=== PATIENT | female | born 1985 | race Caucasian/White ===

== ENCOUNTER 2016-09-17 18:20 | Emergency (ER) | payer OTHER ==
[2016-09-17 18:35] VITALS: RESP 18
[2016-09-17 19:50] LABS: COLOR PALE YELLOW; LEUKOCYTE ESTERASE,URINE NEGATIVE (NEGATIVE); NITRITE,URINE NEGATIVE (NEGATIVE)
[2016-09-17] MEDS ORDERED: ALBUTEROL 3 ML DEYVIAL IH ONE (20:38)
--- NOTE | 2016-09-17 20:41 | EDPHY ---
H & P Stated Complaint: sob/cough/dx viral illness/30 wks preg tello best Time Seen by Provider: 09/17/16 20:33 HPI/ROS: CHIEF COMPLAINT: Cough, congestion, worsening dyspnea HISTORY OF PRESENT ILLNESS: The patient presents to the ED with cough, congestion and worsening dyspnea. The patient reported her symptoms began earlier in the week. She reports a fever to 101. She was seen by her primary physician who diagnosed her with a likely viral syndrome. The patient has been taking [id number] medications with minimal improvement. The patient's son is currently sick with similar respiratory symptoms and is on antibiotics for pneumonia. The patient was not tested for influenza. The patient did have some abdominal cramping. She complains of a harsh and productive cough. REVIEW OF SYSTEMS: A comprehensive 10 point review of systems is otherwise negative aside from elements mentioned in the history of present illness. Source: Patient Exam Limitations: No limitations - Personal History LMP (Females 10-55): Current Tetanus/Diphtheria Vaccine: Yes Current Tetanus Diphtheria and Acellular Pertussis (TDAP): Unsure - Medical/Surgical History Hx Asthma: Yes Hx Chronic Respiratory Disease: No Hx Diabetes: No Hx Cardiac Disease: No Hx Renal Disease: No Hx Cirrhosis: No Hx Alcoholism: No Hx HIV/AIDS: No Hx Splenectomy or Spleen Trauma: No Other PMH: abdominaplasty/ l shoulder surg - Social History Smoking Status: Never smoked - Physical Exam Exam: General Appearance: Alert, no distress Eyes: Pupils equal and round no pallor or injection ENT, Mouth: Mucous membranes moist Respiratory: Rhonchorous breath sounds, expiratory wheezing Cardiovascular: Regular rate and rhythm Gastrointestinal: Abdomen is soft and nontender, no masses, bowel sounds normal Neurological: A&O, normal motor function, normal sensory exam, normal cranial nerves Skin: Warm and dry, no rashes Musculoskeletal: Neck is supple nontender Extremities: symmetrical, full range of motion Constitutional: Initial Vital Signs Temperature (C) 36.5 C 09/17/16 18:32 Heart Rate 94 09/17/16 18:32 Respiratory Rate 18 09/17/16 18:32 Blood Pressure 113/80 09/17/16 18:32 O2 Sat (%) 98 09/17/16 18:32 O2 Delivery Mode Room Air Allergies/Adverse Reactions: No Known Allergies Allergy (Verified 09/17/16 18:32) Home Medications: Medication Instructions Recorded Cetirizine [ZyRTEC] 10 mg PO DAILY 10/23/12 Herbals/Supplements -Info Only 1 each PO AD 10/23/12 Iron/Docusate Sodium 1 each PO BID 10/23/12 [Ovi-Sequels] Magnesium 250 mg PO DAILY 10/23/12 Vit27&Calcium/Iron/FA 1 each PO DAILY 10/23/12 [ Rx 1 Tablet (RX)] Ibuprofen [Advil Liqui-Gels] 2 cap PO PRN 10/01/15 Pseudoephedrine HCl 2 tab PO PRN 10/01/15 Albuterol QID 09/17/16 Albuterol [Ventolin Hfa Inhaler] 2 puffs IH QID PRN #1 mdi 09/17/16 Oseltamivir Phosphate [Tamiflu] 75 mg PO BID #10 cap 09/17/16 Qvar 40 (*) 09/17/16 Medical Decision Making - Diagnostics Imaging: Chest x-ray PA lateral: Images reviewed by myself, changes consistent with bronchitis or noted, no focal infiltrate present ED Course/Re-evaluation: The patient was initially sent to Labor and delivery given the fact she was 30 weeks with complaints of abdominal cramping and possible [place] contractions. The patient was observed on Labor and delivery and had a negative evaluation. She was sent to the ED for subsequent evaluation of her respiratory illness. The patient is noted to have rhonchorous breath sounds on exam. She presents to the ED with an upper respiratory infection. The patient did receive a DuoNeb. The patient's rapid flu test was negative. The patient's chest x-ray demonstrates only changes consistent with bronchitis. Patient was re-evaluated by myself at 9:45 p.m.. She is feeling better after DuoNeb. At this point time she will be discharged home with a albuterol inhaler. Given the fact the patient is she will be started on Tamiflu despite her negative rapid flu test. Differential Diagnosis: Differential diagnosis considered includes asthma, bronchitis, pneumonia, influenza - Data Points Laboratory Results: 09/17/16 09/17/16 20:40 19:42 Urine Color PALE YELLOW Urine Appearance CLEAR Urine pH 7.0 (5.0-7.5) Ur Specific [place] 1.004 (1.002-1.030) Urine Protein NEGATIVE (NEGATIVE) Urine Ketones NEGATIVE (NEGATIVE) Urine Blood NEGATIVE (NEGATIVE) Urine Nitrate NEGATIVE (NEGATIVE) Urine Bilirubin NEGATIVE (NEGATIVE) Urine Urobilinogen NEGATIVE EU (0.2-1.0) Ur Leukocyte Esterase NEGATIVE (NEGATIVE) Urine Glucose NEGATIVE (NEGATIVE) Influenza Typ A,B (DFA) NEGATIVE FOR FLU (NEGATIVE) Medications Given: Discontinued Medications Albuterol (Proventil Neb) 3 ml IH EDNOW ONE Stop: 09/17/16 20:39 Last Admin: 09/17/16 20:54 Dose: 3 ml Departure - Departure Disposition: Home, Routine, Self-Care Clinical Impression: Acute bronchitis, Acute exacerbation of congestive heart failure Condition: Good Instructions: Acute Bronchitis (ED) Additional Instructions: 1. Please use inhaler up to every 2 hours as needed. 2. Please return to the ED for markedly worsening symptoms or other concerns. 3. Please take Tamiflu as directed for possible influenza. 4. Please follow up with your imaging account manager as scheduled Referrals: Chris Cole MD [Primary Care Provider] - Prescriptions: Oseltamivir Phosphate [Tamiflu] 75 mg PO BID #10 cap Albuterol [Ventolin Hfa Inhaler] 2 puffs IH QID PRN #1 mdi PRN Reason: for shortness of breath
--- NOTE | 2016-09-17 21:21 | DX ---
PA and Lateral Chest History: Cough. Comparison: None available. Findings: There is mild peribronchial thickening without focal consolidation. There is no pneumothora x or pleural effusion. The heart and pulmonary vasculature are normal. Mild anterior height reduction at T9 and T10 may be congenital or posttraumatic (age-indeterminate). Impression: Mild peribronchial thickening suggesting airways disease/bronchitis.
[2016-09-17 21:50] VITALS: BP 119/74; PULSE 97; TEMP 98.4; O2SAT 95
== END 2016-09-17 21:49 | disposition home or self-care (01) ==
LOC: FLD 18:57 → UNDOADMOB 18:57 → FLD 20:54
DX: O99.513 Diseases of the respiratory system complicating pregnancy, third trimester (principal); J20.9 Acute bronchitis, unspecified; O99.413 Diseases of the circulatory system complicating pregnancy, third trimester; I50.9 Heart failure, unspecified; J45.909 Unspecified asthma, uncomplicated; Z3A.30 30 weeks gestation of pregnancy

== ENCOUNTER 2016-10-31 03:44 | Observation (INO) | payer OTHER | END 2016-10-31 05:07 | disposition home or self-care (01) | LOC: FLD 03:44 | PROVIDERS: ADMIT Obstetrics & Gynecology; ATTEND Obstetrics & Gynecology | DX: O42.90 Premature rupture of membranes, unspecified as to length of time between rupture and onset of labor, unspecified weeks of gestation (principal); Z3A.00 Weeks of gestation of pregnancy not specified | CPT/HCPCS: 59025; G0378 ==

== ENCOUNTER 2016-11-16 18:15 | Observation (INO) | payer OTHER ==
--- NOTE | 2016-11-16 18:34 | OBPROG ---
OBG Progress Note Assessment/Plan: Assessment:cat 1 fhr denies regular contraction. Cramping for the last hour. no bleeding feeling decreased movement x5-6 hours today denies leaking fluid Plan:nst, cervical exam 11/16/16 18:34 Subjective: I have not felt baby move routinely for several hours today and movement has been no where near what I feel comfortable with. Denies leaking bleeding. Feeling some irregular contractions nothing regular. scheduled csection. Hoping to go into labor. - Physical Exam General Appearance: WD/WN, alert, no apparent distress Respiratory: chest non-tender, lungs clear, normal breath sounds Cardiac/Chest: regular rate, rhythm Abdomen: normal bowel sounds Membranes: Intact Extremities: normal range of motion, Richard's sign (negative bilaterally) DTR- Lower Extremities: Knee (R): 1+, Knee (L): 1+ Skin: normal color, warm/dry Neuro/Psych: no motor/sensory deficits, alert, normal mood/affect, oriented x 3 ICD10 Worksheet Patient Problems: Problems Problem Status Onset Decreased movement affecting management of mother, antepartum Acute - ICD10 Problem Qualifiers (1) Decreased movement affecting management of mother, antepartum
--- NOTE | 2016-11-16 19:37 | GHP ---
[f rep st] HISTORY AND PHYSICAL DATE OF ADMISSION: 11/16/2016 HISTORY OF PRESENT ILLNESS: The patient is a 31-year-old, 3, para 1, A1 with a gestational age of 38 weeks who comes in with complaint of decreased movement and irregular contractions times one hour. On admission, patient denies leaking, bleeding. States feeling irregular cramping. States movement is diminished since early a.m. and what movement she is feeling is different than what she has experienced previously. PAST MEDICAL HISTORY: Patient has a history of asthma. PAST SURGICAL HISTORY: D and C in September of 2015, a previous with her previous , was completed for 0 progress, 7 pounds 3 ounces at 37 weeks, abdominoplasty in 2008, shoulder surgery on her left in 2010. GYNECOLOGICAL HISTORY: denies abnormal Pap, previous use of OCPs and IUD Mirena. FAMILY HISTORY: Mom had a previous D and C, previous abnormal Pap. Sister had a previous abnormal Pap. ALLERGIES: NKDA. MEDICATIONS: vitamins, Zyrtec, Zantac, simethicone, Colace, uses an albuterol inhaler (last time utilized was September of 2015). PHYSICAL EXAMINATION: GENERAL: Patient is awake, alert, oriented x3. LUNGS: Clear bilaterally. ABDOMEN: Bowel sounds are positive in all 4 quadrants. The abdomen is soft on palpation. Estimated weight is 8 pounds. Patient desires a if possible. The patient has a scheduled in 1 week. Exam today was 1, soft, 50% effaced, ballotable, cephalic. Contractions are irregular with no set pattern. PLAN OF CARE: 1. Reactive nonstress test. 2. Labor precautions. 3. Follow up plan of care. 4. Keep next appointment in the clinic. 5. Reassurance. Positive movement. Category I tracing. DISPOSITION: Discharged to home with instructions. /[id number]/MODL MTDD
== END 2016-11-16 19:28 | disposition home or self-care (01) ==
LOC: FLD 18:15
PROVIDERS: ADMIT Advanced Practice Midwife; ATTEND Advanced Practice Midwife
DX: O36.8130 Decreased fetal movements, third trimester, not applicable or unspecified (principal); Z3A.38 38 weeks gestation of pregnancy

== ENCOUNTER 2016-11-29 22:38 | Inpatient (IN) | payer OTHER ==
[2016-11-29] MEDS ORDERED: TERBUTALINE SULFATE 1 MG/ML VIAL IV PRN (22:54)
[2016-11-29] MEDS ORDERED: OXYTOCIN/RINGERS LACTATE 1,000 ML IV PRN (22:54)
[2016-11-29] MEDS ORDERED: AMPICILLIN SODIUM 2 GM in NS 100 ML IV ONE (22:54)
[2016-11-29] MEDS ORDERED: OLIVE OIL 118 ML BTL MISC PRN (22:54)
[2016-11-29] MEDS ORDERED: LIDOCAINE 1% 30 ML SDV SC PRN (22:54)
[2016-11-29] MEDS ORDERED: LR 1,000 ML IV PRN (22:54)
[2016-11-29] MEDS ORDERED: EPSOM SALT 454 GM TP PRN (22:54)
[2016-11-29 23:24] LABS: % IMMATURE GRANULYOCYTES 0.4 % (0.0-1.1); ABSOLUTE IMMATURE GRANULOCYTES 0.06 10^3/uL (0.00-0.10); ADD DIFF? NO; ADD MORPH? NO; ADD SCAN? NO; ATYPICAL LYMPHOCYTE FLAG 0 (0-99); FRAGMENT RBC FLAG 0 (0-99); HEMATOCRIT 39.3 % (38.0-47.0); HEMOGLOBIN 13.3 g/dL (12.6-16.3); LEFT SHIFT FLG 0 (0-99); LIPEMIA HEMOLYSIS FLAG 90 (0-99); MEAN CELL HEMOGLOBIN 29.7 pg (27.9-34.1); MEAN CELL HEMOGLOBIN CONCENTR. 33.8 g/dL (32.4-36.7); MEAN CELL VOLUME 87.7 fL (81.5-99.8); MEAN PLATELET VOLUME 11.3 fL (8.7-11.7); PLATELET CLUMPS FLAG 0 (0-99); PLATELET COUNT 233 10^3/uL (150-400); RED BLOOD CELL COUNT 4.48 10^6/uL (4.18-5.33); RED CELL DISTRIBUTION WIDTH 13.2 % (11.5-15.2)
[2016-11-30 00:13] LABS: ALANINE AMINOTRANSFERASE 30 IU/L (9-52); ASPARTATE AMINOTRANSFERASE 23 IU/L (14-46); BILIRUBIN,TOTAL 0.6 mg/dL (0.1-1.4); BILIRUBIN-CONJUGATED 0.3 mg/dL (0.0-0.5); BILIRUBIN-UNCONJUGATED 0.3 mg/dL (0.0-1.1); CREATININE 0.5 mg/dL (0.6-1.0); GLOMERULAR FILTRATION RATE > 60; LACTATE DEHYDROGENASE 474 IU/L (313-618); URIC ACID 4.4 mg/dL (2.5-6.8)
[2016-11-30] MEDS: AMPICILLIN SODIUM 1 GM in NS 100 ML IV SCH ×3 (03:24→10:59)
[2016-11-30] MEDS ORDERED: AMMONIA AROMATIC 1 EACH AMP IH ONE (04:30)
[2016-11-30] MEDS ORDERED: OLIVE OIL 118 ML BTL ONE (04:30)
[2016-11-30] MEDS ORDERED: LIDOCAINE 1% 30 ML SDV ONE (04:30)
[2016-11-30] MEDS ORDERED: TERBUTALINE SULFATE 1 MG/ML VIAL ONE (04:31)
[2016-11-30] MEDS ORDERED: OXYTOCIN 10 UNIT/ML VIAL ONE (04:31)
[2016-11-30] MEDS ORDERED: MISOPROSTOL 200 MCG TAB ONE (04:31)
--- NOTE | 2016-11-30 08:24 | OBPROG ---
OBG Progress Note Assessment/Plan: Assessment: irregular contractions no pain clear to pink tinged amniotic fluid cat fhr clear fluid since 2100 11/29/2016 discussed r/b/a will wait for Dr. Bermudez to come to sign consents for section anesthesia aware of poc on way to discuss anesthesia Plan: Patient ok with proceeding with a section 11/30/16 08:19 Subjective: Denies contractions. Denies feeling pain. Continuing to leak clear to pink tinged vaginal fluid. Objective: 11/29/16 23:10 11/29/16 23:10 Patient ABO/Rh A POSITIVE 11/29/16 23:10 Uric Acid 4.4 mg/dL (2.5-6.8) 11/29/16 23:10 Total Bilirubin 0.6 mg/dL (0.1-1.4) 11/29/16 23:10 Conjugated Bilirubin 0.3 mg/dL (0.0-0.5) 11/29/16 23:10 Unconjugated Bilirubin 0.3 mg/dL (0.0-1.1) 11/29/16 23:10 AST 23 IU/L (14-46) 11/29/16 23:10 ALT 30 IU/L (9-52) 11/29/16 23:10 Lactate Dehydrogenase 474 IU/L (313-618) 11/29/16 23:10 - Physical Exam General Appearance: WD/WN, alert, no apparent distress Respiratory: chest non-tender, lungs clear, normal breath sounds Cardiac/Chest: regular rate, rhythm Abdomen: normal bowel sounds Membranes: SROM Amniotic Fluid Color: blood tinged Extremities: normal range of motion, Richard's sign (negative bilaterally) DTR- Lower Extremities: Knee (R): 1+, Knee (L): 1+ Skin: normal color, warm/dry Neuro/Psych: no motor/sensory deficits, alert, normal mood/affect, oriented x 3 ICD10 Worksheet Patient Problems: Problems Problem Status Onset Decreased movement affecting management of mother, antepartum Acute
--- NOTE | 2016-11-30 08:47 | GHP ---
[f rep st] HISTORY AND PHYSICAL DATE OF ADMISSION: 11/29/2016 SUBJECTIVE: The patient is a 3, P1, A1, at 40 weeks gestation, who comes in on 11/29/2016 at 2100 with complaints of rupture of membranes; mostly clear, some pinkish blood-tinged after spontaneous rupture of membranes. Feeling positive movement. Continuing to leak clear fluid on 11/30/2016. Irregular nonpainful contractions throughout the night. The patient ate at the last time at 2100 on 11/29/2016. Clear fluids since. GBS positive has received 3 doses antibiotics. MEDICAL HISTORY: Patient has a history of asthma. PAST SURGICAL HISTORY: Previous for failure to progress. Left shoulder surgery in 2010. Abdominoplasty in 2008. D and C in 09/2015. Denies any difficulties with any of these procedures. FAMILY HISTORY: Noncontributory. PREVIOUS HISTORY: Previous , Preeclampsia, as well as a C- section for failure to progress. GYNECOLOGICAL HISTORY: Noncontributory. The patient has received 3 doses of antibiotics. LABORATORY DATA: A+ Rubella immune. All other labs, we are waiting on the to be sent from the office. PHYSICAL EXAMINATION: GENERAL: Patient is awake, alert, oriented x3. LUNGS: Clear bilaterally. ABDOMEN: Bowel sounds are positive in all 4 quadrants. EXTREMITIES: DTRs are 1+ bilaterally. No clonus. Homans' sign is negative bilaterally. No edema in lower extremities. PLAN OF CARE: 1. GBS positive x 3 doses antibiotics 2. Spontaneous rupture of membranes on 11/29/2016 at 2100. 3. No spontaneous labor. 4. Proceed to section with the patient stating that is her desired plan of care. /[id number]/MODL MTDD
[2016-11-30] MEDS ORDERED: ceFAZolin 2 GM/DEXTROSE 100 ML IV ONE (09:02)
[2016-11-30] MEDS ORDERED: CITRIC ACID/SODIUM CITRATE 30 ML UDCUP PO ONE (09:02)
[2016-11-30] MEDS ORDERED: fentaNYL 100 MCG/2 ML INJ ONE (11:04)
[2016-11-30] MEDS ORDERED: morphINE PF 5 MG/10 ML INJ ONE (11:04)
[2016-11-30] MEDS ORDERED: PHENYLEPHRINE HCL 100 MCG/ML SYR ONE ×3 (11:22→11:52)
[2016-11-30] MEDS ORDERED: METOCLOPRAMIDE 10 MG/2 ML VIAL ONE ×2 (11:28→11:31)
[2016-11-30] MEDS ORDERED: DEXAMETHASONE 4 MG/ML VIAL ONE ×3 (11:28→11:50)
[2016-11-30] MEDS ORDERED: OXYTOCIN 100 UNITS/10 ML VIAL ONE (11:50)
[2016-11-30] MEDS ORDERED: SCOPOLAMINE HYDROBROMIDE 1.5 MG PATCH TD ONE (11:57)
[2016-11-30] MEDS ORDERED: MAGNESIUM HYDROXIDE 30 ML UDCUP PO PRN (12:26)
[2016-11-30] MEDS ORDERED: DOCUSATE SODIUM 100 MG CAP PO PRN (12:26)
[2016-11-30] MEDS ORDERED: LACTULOSE 20 GM/30 ML UDCUP PO PRN (12:26)
[2016-11-30] MEDS ORDERED: POLYETHYLENE GLYCOL 3350 17 GM PKT PO PRN (12:26)
[2016-11-30] MEDS ORDERED: BISACODYL 10 MG SUPP PR PRN (12:26)
[2016-11-30] MEDS ORDERED: ACETAMINOPHEN 325 MG TAB PO PRN (12:26)
--- NOTE | 2016-11-30 12:29 | OBPROC ---
- Delivery Pre-op Diagnoses: IUP at 40 weeks, SROm, hx prior section Post-op Diagnoses: same plus occiput posterior Procedure: Repeat, Low Transverse Surgeon: Clau Bermudez Biology Instructor: Estephanie Camarillo Anesthesia: Spinal EBL: 800 - [place] Info A Delivery Date: 11/30/16 Delivery Time: 11:47 Sex of Infant: Female Score (1 Min): 8 Score (5 Min): 9
--- NOTE | 2016-11-30 13:02 | GOP ---
[f rep st] OPERATIVE REPORT DATE OF OPERATION: 11/30/2016 SURGEON: Clau Bermudez DO COIN TELLER: Roxann Camarillo. ANESTHESIA: Epidural with Duramorph. ANESTHESIOLOGIST: Vinny Sweet MD PREOPERATIVE DIAGNOSIS: 1. Intrauterine at 40 weeks gestation. 2. History of previous low transverse section. 3. Spontaneous rupture of membranes of 12 hours, did not progress in active labor. Declines augmen tation. POSTOPERATIVE DIAGNOSIS: 1. Intrauterine at 40 weeks gestation. 2. History of previous low transverse section. 3. Spontaneous rupture of membranes of 12 hours, did not progress in active labor. Declines augmen tation. 4. Occiput posterior. PROCEDURE PERFORMED: Repeat low transverse section. FINDINGS: 1. Viable female infant in the occiput posterior presentation delivered at 11:47 a.m. Apgars were 8 and 9. 2. Intact placenta with 3-vessel cord. 1. Normal ovaries, uterus, and tubes. ESTIMATED BLOOD LOSS: 800 cc. INDICATIONS: Patient is a 31-year-old 3, para 2-0-1-2, who is 40 weeks gestation. She is s cheduled for a repeat section tomorrow morning, but had a spontaneous rupture of membranes last night. She had initially hoped to do a vaginal after section. She spontaneousl y ruptured last night and did not progress into active labor. We had a discussion of options of aug mentation versus proceeding with a repeat section. Patient declines augmentation and wishe s to proceed with a repeat low-transverse section. The patient's family status is complete , but she declines tubal ligation. Risks and benefits of the procedure have been reviewed with the patient. The patient has been properly consented. DESCRIPTION OF PROCEDURE: Patient taken to the operating room with intravenous fluids in place. Jason dunham was given 2 g of Ancef intravenously and placed on the operating room table, where spinal anesthes ia was obtained. She was then repositioned into the dorsal supine position with a leftward tilt. A Barragan catheter was then placed. Venodynes were placed on her lower extremities. She was then prep ped and draped in the normal sterile fashion. Anesthesia was assessed and found to be adequate. A Pfannenstiel skin incision was then made 2 fingerbreadths above the pubic symphysis. The incision was then carried through to the underlying layer of fascia with the Bovie. The fascia was then lucas ked in the midline and the fascial incision was extended laterally. The superior aspect of the fasc ial incision was grasped with the Kelsie's, tented up, and the underlying rectus muscle dissected of f bluntly and with the Bovie. Attention was then turned to the inferior aspect of the fascial incis ion, which, in a similar fashion, was grasped with Kochers, tented up, and the underlying rectus mus jocelyn dissected off bluntly with the Bovie. The rectus muscle was then in the midline. The peritoneum was then identified, tented up, and entered sharply with the Metzenbaum scissors. The i ncision was extended superiorly and inferiorly with excellent visualization of the bladder. The bj dder blade was then inserted. The vesicouterine peritoneum was then identified, tented up, and ente red sharply with the Metzenbaum scissors. The incision was then extended laterally and a bladder fl ap was created digitally. The bladder blade was then reinserted. The uterus was then incised in a low transverse fashion with the scalpel. The uterine incision was extended laterally. The infant's head was delivered through the incision. It was noted to be in oc ciput posterior presentation. The viable female was then delivered without difficulty. Stefani yed cord clamping was performed for 1 minute. The cord was then clamped x2 and cut. Cord blood was obtained. The infant was handed off to awaiting nurse practitioner. Intact placenta with 3-vessel cord delivered without difficulty. The uterus was then exteriorized a nd cleared of all clots and debris and wrapped in a moist laparotomy sponge. The hysterotomy was cl osed with 0 Vicryl in a running, locked fashion. A second 0 Vicryl stitch was used to imbricate the uterine incision. The ovaries, uterus, and tubes were unremarkable. The abdomen was cleared of al l clots. The uterus was then returned to the patient's abdomen. The gutters were cleared of all cl ots and debris. The hysterotomy remained hemostatic. Peritoneum was reapproximated with 3-0 Vicryl in a running fashion. Rectus muscle was reapproximate d with 2-0 Vicryl in a running fashion. Fascia was closed with 0 Vicryl in a running fashion. Subc utaneous tissue was found to be hemostatic. It was reapproximated with 3-0 Vicryl in a running fash ion. The skin was then closed with nitin. Sponge, lap, needle counts were correct x2. Patient w as transported to the recovery room in stable condition. /[id number]/MODL
[2016-11-30] MEDS ORDERED: PHENYLEPHRINE HCL 100 MCG/ML SYR IVP PRN (13:10)
[2016-11-30] MEDS ORDERED: NALOXONE HCL 0.4 MG/ML INJ IVP PRN (13:10)
[2016-11-30] MEDS ORDERED: MEPERIDINE 25 MG/ML SYR IVP ONE (13:24)
--- NOTE | 2016-11-30 13:38 | PREANESOB ---
Obstetric Pre-Anesthesia Info - General Info Proposed Procedure: Repeat C Section. : 3 Para: 1 WBD: 40 - Info Status: Full Term Monitors: External FHR Baseline (bpm): 125 FHR Pattern: Reassuring - Labor Status Section History: Repeat Indications for Current Section: Elective/Repeat Labor Epidural: No Anesthesia ROS: Mild asthma. Previous epidural for labor and C Section. Allergies/Adverse Reactions: Allergy/AdvReac Type Severity Reaction Status Date / Time No Known Allergies Allergy Verified 09/17/16 18:32 Home Medications: Medication Instructions Recorded Cetirizine [ZyRTEC] 10 mg PO DAILY 10/23/12 Magnesium 250 mg PO DAILY 10/23/12 Vit27&Calcium/Iron/FA 1 each PO DAILY 10/23/12 [ Rx 1 Tablet (RX)] Albuterol [Ventolin Hfa Inhaler] 2 puffs IH QID PRN #1 mdi 09/17/16 Aspirin [Children's Aspirin] DAILY 10/31/16 Docusate Sodium [Colace 100 MG (*)] PRN PRN 10/31/16 Ranitidine HCl [Zantac] PO DAILY 10/31/16 Visit Medications: Generic Name Dose Route Start Last Admin Trade Name Freq PRN Reason Stop Dose Admin Acetaminophen 325 - 650 mg 11/30/16 12:26 Tylenol PO 05/29/17 12:25 Q3HRS PRN Pain, Mild Hydrocodone Bitart/Acetaminophen 1 - 2 tab 11/30/16 12:26 [place] 5/325 PO 12/10/16 12:25 Q4HRS PRN Pain, Moderate Bisacodyl 10 mg 11/30/16 12:26 Dulcolax Rectal LA 05/29/17 12:25 DAILY PRN Constipation Protocol Diphenhydramine HCl 25 - 50 mg 11/30/16 13:10 Benadryl Injection IVP 05/29/17 13:09 Q6HRS PRN Itching Docusate Sodium 100 mg 11/30/16 12:26 Colace PO 05/29/17 12:25 BID PRN Constipation Lactated Ringer's 1,000 mls @ 0 mls/hr 11/29/16 22:54 11/29/16 23:19 Lr IV 05/28/17 22:53 1,000 mls PRN PRN Administration SEE PROTOCOL CONDITIONS Protocol Per Protocol Oxytocin/Lactated Ringer's 1,000 mls @ 150 mls/hr 11/29/16 22:54 Pitocin 20 Units/Lr (Premix) IV PRN PRN Post- bleeding Ibuprofen 600 mg 11/29/16 22:54 Motrin PO 05/28/17 22:53 Q6HRS PRN post , inflammation Ketorolac Tromethamine 30 mg 11/30/16 18:00 Toradol IVP 12/01/16 12:01 Q6HRS JEANCARLOS Lactulose 20 gm 11/30/16 12:26 Cephulac PO 05/29/17 12:25 TID PRN Constipation Protocol Lidocaine HCl 30 ml 11/29/16 22:54 Lidocaine Hcl 1% SC 05/28/17 22:53 ONCE PRN Episiotomy Magnesium Hydroxide 30 ml 11/30/16 12:26 Milk Of Magnesia PO 05/29/17 12:25 DAILY PRN Constipation Protocol Magnesium Sulfate 454 gm 11/29/16 22:54 Epsom Salt TP 05/28/17 22:53 PRN PRN perineal discomfort Naloxone HCl 0.4 mg 11/30/16 13:10 Narcan IVP 12/01/16 13:12 PRN PRN respiratory depression [place]iga Oil 118 ml 11/29/16 22:54 Sweet Oil MISC 05/28/17 22:53 ONCE PRN preneal massage Phenylephrine HCl 100 mcg 11/30/16 13:10 Lucas-Synephrine IVP 11/30/16 14:11 Q1M PRN Hypotension Polyethylene Glycol 17 gm 11/30/16 12:26 Miralax PO 05/29/17 12:25 DAILY PRN Constipation, patient prefers Protocol Senna/Docusate Sodium 1 - 2 tab 11/30/16 21:00 Senokot-S PO 05/29/17 20:59 BID JEANCARLOS Protocol Simethicone 80 mg 11/30/16 12:26 Mylicon PO 05/29/17 12:25 .TIDMEALS AND HS PRN Gas Terbutaline Sulfate 0.25 mg 11/29/16 22:54 Brethine IV 05/28/17 22:53 ONCE PRN Tachysystole Discontinued Medications Generic Name Dose Route Start Last Admin Trade Name Freq PRN Reason Stop Dose Admin Ammonia (Aromatic Spirit) Confirm 11/30/16 04:30 Ammonia Aromatic Administered 11/30/16 04:31 Dose 1 each IH .STK-MED ONE Citric Acid/Sodium Citrate 30 ml 11/30/16 09:02 11/30/16 10:58 Bicitra PO 11/30/16 09:03 30 ml ONCALL ONE Administration Dexamethasone Confirm 11/30/16 11:28 Decadron Injection Administered 11/30/16 11:29 Dose 4 mg .ROUTE .STK-MED ONE Dexamethasone Confirm 11/30/16 11:28 Decadron Injection Administered 11/30/16 11:29 Dose 4 mg .ROUTE .STK-MED ONE Dexamethasone Confirm 11/30/16 11:50 Decadron Injection Administered 11/30/16 11:51 Dose 4 mg .ROUTE .STK-MED ONE Ephedrine Sulfate Confirm 11/30/16 04:30 Ephedrine Sulfate Administered 11/30/16 04:31 Dose 50 mg .ROUTE .STK-MED ONE Fentanyl Confirm 11/30/16 11:04 Sublimaze Administered 11/30/16 11:05 Dose 100 mcg .ROUTE .STK-MED ONE Ampicillin Sodium 2 gm/ Sodium 110 mls @ 220 mls/hr 11/29/16 22:54 11/29/16 23:19 Chloride IV 11/29/16 23:23 110 mls ONCE ONE Administration Protocol Ampicillin Sodium 1 gm/ Sodium 100 mls @ 200 mls/hr 11/30/16 02:58 11/30/16 10:59 Chloride IV 12/30/16 02:57 Not Given Q4H JEANCARLOS Protocol Cefazolin Sodium/Dextrose 100 mls @ 200 mls/hr 11/30/16 09:02 11/30/16 10:59 Ancef 2 Gm (Premix) IV 11/30/16 09:31 100 mls ONCALL ONE Administration Protocol Lidocaine HCl Confirm 11/30/16 04:30 Lidocaine Hcl 1% Administered 11/30/16 04:31 Dose 30 ml .ROUTE .STK-MED ONE Meperidine HCl 25 mg 11/30/16 13:24 Demerol 25 Mg/Ml Syringe IVP 11/30/16 13:25 ONCE ONE Metoclopramide HCl Confirm 11/30/16 11:28 Reglan Injection Administered 11/30/16 11:29 Dose 10 mg .ROUTE .STK-MED ONE Metoclopramide HCl Confirm 11/30/16 11:31 Reglan Injection Administered 11/30/16 11:32 Dose 10 mg .ROUTE .STK-MED ONE Misoprostol Confirm 11/30/16 04:31 Cytotec Administered 11/30/16 04:32 Dose 1,000 mcg .ROUTE .STK-MED ONE Morphine Sulfate Confirm 11/30/16 11:04 Morphine Pf 5 Mg/10 Ml Administered 11/30/16 11:05 Dose 5 mg .ROUTE .STK-MED ONE Riga Oil Confirm 11/30/16 04:30 Sweet Oil Administered 11/30/16 04:31 Dose 118 ml .ROUTE .STK-MED ONE Oxytocin Confirm 11/30/16 04:31 Pitocin Administered 11/30/16 04:32 Dose 30 unit .ROUTE .STK-MED ONE Oxytocin Confirm 11/30/16 11:50 Pitocin Administered 11/30/16 11:51 Dose 100 units .ROUTE .STK-MED ONE Phenylephrine HCl Confirm 11/30/16 11:22 Lucas-Synephrine Administered 11/30/16 11:23 Dose 1,000 mcg .ROUTE .STK-MED ONE Phenylephrine HCl Confirm 11/30/16 11:30 Lucas-Synephrine Administered 11/30/16 11:31 Dose 1,000 mcg .ROUTE .STK-MED ONE Phenylephrine HCl Confirm 11/30/16 11:52 Lucas-Synephrine Administered 11/30/16 11:53 Dose 1,000 mcg .ROUTE .STK-MED ONE Scopolamine HBr Confirm 11/30/16 11:57 Transderm-Scop Administered 11/30/16 11:58 Dose 1.5 mg TD .STK-MED ONE Terbutaline Sulfate Confirm 11/30/16 04:31 Brethine Administered 11/30/16 04:32 Dose 1 mg .ROUTE .STK-MED ONE - Anesthesia History Response to Local Anesthetics: Normal Anesthesia & Operative History: No Prior Problems - Social History Substance Use/Abuse: Denies - Focused Exam Blood Pressure: 130/76 Heart Rate: 80 Respiratory Rate: 16 Height/Weight (Nursing): Height 165.1 cm Weight 95.254 kg Physical Exam: Within normal limits. ASA Status: II Labs: 11/29/16 23:10 11/29/16 23:10 Patient ABO/Rh A POSITIVE 11/29/16 23:10 Uric Acid 4.4 mg/dL (2.5-6.8) 11/29/16 23:10 Total Bilirubin 0.6 mg/dL (0.1-1.4) 11/29/16 23:10 Conjugated Bilirubin 0.3 mg/dL (0.0-0.5) 11/29/16 23:10 Unconjugated Bilirubin 0.3 mg/dL (0.0-1.1) 11/29/16 23:10 AST 23 IU/L (14-46) 11/29/16 23:10 ALT 30 IU/L (9-52) 11/29/16 23:10 Lactate Dehydrogenase 474 IU/L (313-618) 11/29/16 23:10 - Plan Anesthetic Plan: SAB Consent Signed and on Chart: Yes Patient/Guardian Understands and Agrees to Plan: Yes
--- NOTE | 2016-11-30 13:41 | POSTANESTH ---
Post Anesthetic Evaluation Cardiovascular Status: Normal, Stable Respiratory Status: Normal, Stable, Similar to Pre-op Cond. Level of Consciousness/Mental Status: Can Participate in Eval, Alert and Oriented Pain Control: Adequate, Prn Tx Ordered Nausea/Vomiting Control: Adequate, Prn Tx Ordered Complications Possibly Related to Anesthesia: None Noted (Tolerated spinal well , BP treated, comfortable for surgery, to PACU, no pain or nausea.)
[2016-11-30] MEDS: KETOROLAC 30 MG/1 ML SDV IVP SCH ×2 (14:02→19:37)
[2016-11-30] MEDS: SENNOSIDES/DOCUSATE SODIUM TAB PO SCH (19:38)
[2016-12-01] MEDS: KETOROLAC 30 MG/1 ML SDV IVP SCH ×2 (02:00→08:01)
[2016-12-01] MEDS: SENNOSIDES/DOCUSATE SODIUM TAB PO SCH ×2 (08:01→19:58)
--- NOTE | 2016-12-01 09:04 | OBPROG ---
OBG Progress Note Assessment/Plan: Assessment: 1) s/p R-LTCS POD # 1 - pt is stable 2) Anemia - pt is asymptomatic Plan: Continue routine post-op care Reynolds to be removed this am Encourage ambulation and IS Pt may shower after dressing removed this am Will start iron BID, cont colace Plan for d/c home in 48 hrs 12/01/16 09:00 Subjective: Pt seen and examined. Doing well with no complaints. Pain is well controlled. Pt is OOB, tammie regular diet, reynolds in place, and passing flatus. No BM. Denies any f/c/n/v/CP or SOB. Moderate lochia. going well thus far. Objective: 12/01/16 06:30 11/29/16 23:10 Patient ABO/Rh A POSITIVE 11/29/16 23:10 Uric Acid 4.4 mg/dL (2.5-6.8) 11/29/16 23:10 Total Bilirubin 0.6 mg/dL (0.1-1.4) 11/29/16 23:10 Conjugated Bilirubin 0.3 mg/dL (0.0-0.5) 11/29/16 23:10 Unconjugated Bilirubin 0.3 mg/dL (0.0-1.1) 11/29/16 23:10 AST 23 IU/L (14-46) 11/29/16 23:10 ALT 30 IU/L (9-52) 11/29/16 23:10 Lactate Dehydrogenase 474 IU/L (313-618) 11/29/16 23:10 Temp Pulse Resp BP Pulse Ox 36.6 C 64 16 103/55 L 94 12/01/16 06:20 12/01/16 06:20 12/01/16 06:20 12/01/16 06:20 12/01/16 06:20 Uterine Position/Fundal Height: Umbilicus -2 Uterine Tone: Firm - Physical Exam General Appearance: WD/WN, alert, no apparent distress Respiratory: lungs clear, normal breath sounds Cardiac/Chest: regular rate, rhythm Abdomen: normal bowel sounds, soft, flatus (+), incision (C/D/I with dressing in place), dressing (C/D/I), other (appropriate tenderness) Genitourinary: lochia (moderate) Extremities: non-tender, normal inspection Neuro/Psych: alert, normal mood/affect, oriented x 3 ICD10 Worksheet Patient Problems: Problems Problem Status Onset delivery delivered Acute
[2016-12-01] MEDS: HYDROCODONE/APAP 5/325 TAB PO PRN ×4 (09:40→22:55)
[2016-12-01] MEDS ORDERED: diphenhydrAMINE 25 MG CAP PO ONE (13:00)
[2016-12-01] MEDS: IBUPROFEN 600 MG TAB PO PRN ×2 (14:03→19:58)
[2016-12-01] MEDS ORDERED: CALCIUM CARBONATE 500 MG CHEWABLE TAB PO PRN (19:27)
[2016-12-02] MEDS: HYDROCODONE/APAP 5/325 TAB PO PRN ×6 (02:33→23:21)
[2016-12-02] MEDS: IBUPROFEN 600 MG TAB PO PRN ×4 (02:33→21:17)
[2016-12-02] MEDS: SENNOSIDES/DOCUSATE SODIUM TAB PO SCH ×2 (08:51→21:21)
[2016-12-02] MEDS: CETIRIZINE 10 MG TAB PO SCH (08:51)
--- NOTE | 2016-12-02 10:02 | SOAPPROG ---
SOAP Progress Note Assessment/Plan: Assessment: 31y/o day 2 s/p repeat C/S 11/30/16 Mild anemia Plan: Routine PP care Con't PO iron Rev PP precautions Anticipate d/c to home tmrw 12/03/16 12/02/16 09:59 Subjective: Pt resting comfortably in bed with infant at breast. States pain well- controlled with [place] and Ibuprofen. Reports going well. Lochia light. Voiding without difficulty. Passing flatus, denies BM. Tolerating regular diet. Objective: Vital Signs Temp Pulse Resp BP Pulse Ox 36.4 C 70 16 115/75 94 12/02/16 04:15 12/02/16 04:15 12/02/16 04:15 12/02/16 04:15 12/02/16 04:15 Laboratory Results 12/01/16 06:30 11/29/16 23:10 12/01/16 12/02/16 12/03/16 05:59 05:59 05:59 Intake Total 2800 Output Total 1600 1000 Balance 1200 -1000 Physical Exam - Physical Exam General Appearance: alert, no apparent distress Respiratory: lungs clear, normal breath sounds Cardiac/Chest: regular rate, rhythm Abdomen: non-tender, soft Pelvic Exam: normal external exam (Incision clean/dry/well-approximated, open to air), vaginal bleeding (lochia light), other (Fundus firm @U) Skin: normal color, warm/dry Extremities: normal range of motion, non-tender, pedal edema (trace BLE edema) Neuro/Psych: alert, normal mood/affect, oriented x 3 ICD10 Worksheet Patient Problems: Problems Problem Status Onset delivery delivered Acute
[2016-12-02] MEDS: SIMETHICONE 80 MG TAB CHEW PO PRN ×3 (15:10→21:21)
[2016-12-02] MEDS ORDERED: FLUCONAZOLE 150 MG TAB PO ONE (19:28)
[2016-12-02 22:23] VITALS: BP 122/80; PULSE 76; RESP 17; TEMP 97.1; O2SAT 96
[2016-12-03] MEDS: IBUPROFEN 600 MG TAB PO PRN ×2 (03:13→09:15)
[2016-12-03] MEDS: HYDROCODONE/APAP 5/325 TAB PO PRN ×2 (03:46→09:14)
[2016-12-03] MEDS: SENNOSIDES/DOCUSATE SODIUM TAB PO SCH ×2 (09:15→09:46)
[2016-12-03] MEDS: CETIRIZINE 10 MG TAB PO SCH (09:15)
[2016-12-03] MEDS: SIMETHICONE 80 MG TAB CHEW PO PRN (09:46)
[2016-12-03] MEDS ORDERED: IRON POLYSAC/IRON HEME 28 MG TAB PO SCH (10:30)
== END 2016-12-03 13:50 | disposition home or self-care (01) | DRG 766 ==
LOC: FLD 22:38 → FOB 11-30 14:22
PROVIDERS: ADMIT Obstetrics & Gynecology; ATTEND Obstetrics & Gynecology
PROC: 10D00Z1 Extraction of Products of Conception, Low, Open Approach (ICD-10-PCS; principal; 2016-11-30)
DX: O42.92 Full-term premature rupture of membranes, unspecified as to length of time between rupture and onset of labor (principal); O99.824 Streptococcus B carrier state complicating childbirth; O34.211 Maternal care for low transverse scar from previous cesarean delivery; Z3A.40 40 weeks gestation of pregnancy; Z37.0 Single live birth
CPT/HCPCS: J0290; J0690; J1100; J1200; J1885; J2274; J2370; J2590; J2765; J3010; J3105